=== PATIENT | female | born 1945 | race Two or more races ===

== ENCOUNTER 2019-02-27 08:05 | Outpatient (CLI) | payer OTHER | END 2019-02-27 08:18 | disposition home or self-care (01) | LOC: SONOGRAMA 08:05 | DX: E04.2 Nontoxic multinodular goiter (principal) ==

== ENCOUNTER 2024-04-03 11:07 | Outpatient (CLI) | payer OTHER | END 2024-04-03 11:09 | disposition home or self-care (01) | LOC: SONOGRAMA 11:07 | PROVIDERS: ATTEND Pathology Anatomic Pathology & Clinical Pathology | DX: D34 Benign neoplasm of thyroid gland (principal); E07.89 Other specified disorders of thyroid; E04.2 Nontoxic multinodular goiter ==